=== PATIENT | male | born 1970 | race Caucasian/White ===

== ENCOUNTER 2019-03-06 12:30 | Day surgery (SDC) | payer BC, OTHER, SELFPAY ==
[~2019-03-06] VITALS: Ht 182.9 cm; Wt 104.8 kg
[~2019-03-06 12:30] MED LIST: ATOR1TAB21 PO; FISH1000 PO; LISI-538 PO; METF500T13 PO; NS 1,000 ML IV ONE; PANT40TA3 PO
[2019-03-06] MEDS ORDERED: LIDOCAINE 2% INJ 100 MG/5 ML SDV (FOR ANES.) As Ordered ONE (13:34)
[2019-03-06] MEDS ORDERED: PROPOFOL 200 MG/20 ML VIAL As Ordered ONE ×2 (13:34→13:55)
--- NOTE | 2019-03-06 13:53 | ROOR ---
Patient Name: Bin Colon Procedure Date: 03/06/2019 1:38 PM Date of : 1970 Age: 48 Room: [facility] Gender: Male Note Status: Finalized Procedure: Upper GI endoscopy Indications: Heartburn Providers: Moshe HENRY MD Referring MD: Mireya Ureña Requesting Provider: Medicines: Monitored Anesthesia Care Complications: No immediate complications. Procedure: Pre-Anesthesia Assessment: - The heart rate, respiratory rate, oxygen saturations, blood pressure, adequacy of pulmonary ventilation, and response to care were monitored throughout the procedure. The Endoscope was introduced through the mouth, and advanced to the jejunum. The upper GI endoscopy was accomplished without difficulty. The patient tolerated the procedure well. Findings: The examined esophagus was normal. Evidence of a Tiffanie-en-Y gastrojejunostomy was found. The gastrojejunal anastomosis was characterized by healthy appearing mucosa. The exam of the stomach was otherwise normal. The examined jejunum was normal. Impression: - Normal esophagus. - Tiffanie-en-Y gastrojejunostomy with gastrojejunal anastomosis characterized by healthy appearing mucosa. - Normal examined jejunum. - No specimens collected. Recommendation: - Continue present medications. - Observe patient's clinical course. Moshe Henry MD Moshe HENRY MD 03/06/2019 1:53:16 PM Electronically signed by Moshe HENRY MD Number of Addenda: 0 Note Initiated On: 03/06/2019 1:38 PM Estimated Blood Loss: Estimated blood loss: none.
--- NOTE | 2019-03-06 14:16 | ROOR ---
Patient Name: Bin Colon Procedure Date: 03/06/2019 1:41 PM Date of : 1970 Age: 48 Room: [facility] Gender: Male Note Status: Finalized Procedure: Colonoscopy Indications: High risk colon cancer surveillance: Personal history of colonic polyps, Last colonoscopy: February 2013 Providers: Moshe ARZOLA MD Referring MD: Mireya CRONIN Requesting Provider: Medicines: Monitored Anesthesia Care Complications: No immediate complications. Procedure: Pre-Anesthesia Assessment: - The heart rate, respiratory rate, oxygen saturations, blood pressure, adequacy of pulmonary ventilation, and response to care were monitored throughout the procedure. The Colonoscope was introduced through the anus and advanced to the terminal ileum, with identification of the appendiceal orifice and IC valve. The colonoscopy was performed without difficulty. The patient tolerated the procedure well. The quality of the bowel preparation was good. Findings: The perianal and digital rectal examinations were normal. Two sessile polyps were found in the sigmoid colon. The polyps were 4 to 5 mm in size. These polyps were removed with a cold snare. Resection and retrieval were complete. Internal hemorrhoids were found during retroflexion. The hemorrhoids were moderate. The exam was otherwise without abnormality on direct and retroflexion views. Impression: - Two 4 to 5 mm polyps in the sigmoid colon, removed with a cold snare. Resected and retrieved. - Internal hemorrhoids. - The examination was otherwise normal on direct and retroflexion views. Recommendation: - Telephone endoscopist for pathology results in 2 weeks. - Repeat colonoscopy in 5-10 years for surveillance based on pathology results. Moshe Arzola MD Moshe ARZOLA MD 03/06/2019 2:16:09 PM Electronically signed by Moshe ARZOLA MD Number of Addenda: 0 Note Initiated On: 03/06/2019 1:41 PM Estimated Blood Loss: Estimated blood loss: none.
[2019-03-06 14:40] VITALS: BP 144/84
== END 2019-03-06 14:49 | disposition home or self-care (01) ==
LOC: M OPP 12:30
PROVIDERS: ATTEND Internal Medicine Gastroenterology
DX: Z12.11 Encounter for screening for malignant neoplasm of colon (principal); Z86.010 Personal history of colon polyps; D12.5 Benign neoplasm of sigmoid colon; K64.8 Other hemorrhoids; Z98.0 Intestinal bypass and anastomosis status; R12 Heartburn; Z79.899 Other long term (current) drug therapy; Z79.84 Long term (current) use of oral hypoglycemic drugs